=== PATIENT | female | born 1990 | race Two or more races ===

== ENCOUNTER 2021-07-23 18:37 | Emergency (ER) | payer OTHER ==
[~2021-07-23] VITALS: Ht 167.6 cm; Wt 86.2 kg
[2021-07-23 19:34] VITALS: BP 141/75
[2021-07-26 09:13] LABS: Hepatitis B Surface Antibody Positive (Negative)
== END 2021-07-23 20:39 | disposition home or self-care (01) ==
LOC: ER 18:37
DX: S61.201A Unspecified open wound of left index finger without damage to nail, initial encounter (principal); Z98.51 Tubal ligation status; W27.3XXA Contact with needle (sewing), initial encounter; Y93.89 Activity, other specified; Y92.89 Other specified places as the place of occurrence of the external cause; Y99.8 Other external cause status
CPT/HCPCS: 36415; 86703; 86706; 86803; 87340

== ENCOUNTER 2021-07-29 11:42 | Emergency (ER) | payer OTHER ==
[~2021-07-29] VITALS: Ht 167.6 cm; Wt 86.2 kg
[2021-07-29 11:42] VITALS: BP 149/78
[2021-07-29] MEDS ORDERED: HEPATITIS B IMMUNE GLOB 0.5 ML VIAL IM ONE (12:15)
== END 2021-07-29 13:01 | disposition home or self-care (01) ==
LOC: ER 11:42
DX: S61.231D Puncture wound without foreign body of left index finger without damage to nail, subsequent encounter (principal); Z98.51 Tubal ligation status; Z51.81 Encounter for therapeutic drug level monitoring
CPT/HCPCS: 96372